=== PATIENT | female | born 1965 | race Caucasian/White ===

== ENCOUNTER 2017-01-20 16:35 | Inpatient (IN) ==
[2017-01-20 18:28] LABS: MANUAL DIFF NEEDED? NO
[2017-01-20 18:31] LABS: BASO% 0.5 % (0.0-0.8); EOS# 0.11 X1000 (0.0-0.7); EOS% 1.7 % (0.0-10.0); HEMATOCRIT 41.3 % (37.0-47.0); HEMOGLOBIN 13.8 g/dL (12.0-16.0); IMM GRAN# 0.01 X1000 (0.0-0.04); IMM GRAN% 0.2 % (0.0-0.5); LYMPH# 1.61 X1000 (1.2-3.4); LYMPH% 24.2 % (20.5-51.1); MCH 31.2 PG (27-31); MCHC 33.4 g/dL (33-37); MCV 93.4 FL (81-99); MONO# 0.67 X1000 (0.11-0.59); MONO% 10.1 % (1.7-9.3); MPV 9.8 FL (7.4-10.4); NEUT% 63.3 % (42.2-75.2); PLT 191 X1000 (130-400); RBC 4.42 XMIL (4.2-5.4)
[2017-01-20 18:50] LABS: CALCIUM 9.3 mg/dL (8.8-10.2); POTASSIUM 2.7 mmol/L (3.5-5.1); TOTAL BILIRUBIN 0.3 mg/dL (0.20-1.00); TOTAL PROTEIN 7.9 g/dL (6.3-8.3)
[2017-01-20] MEDS: POTASSIUM CHLORIDE 20 MEQ/SWI 20 MEQ/100 ML IVPB IV ONE ×2 (19:13→23:00)
[2017-01-20] MEDS ORDERED: KLOR-CON PO ONE (19:14)
[2017-01-20] MEDS ORDERED: TOPROL XL PO ONE (19:55)
[2017-01-20] MEDS ORDERED: NS 1,000 ML IV ONE (23:06)
[2017-01-20] MEDS ORDERED: DILAUDID IV ONE (23:07)
[2017-01-21 07:44] LABS: HEMATOCRIT 34.9 % (37.0-47.0); HEMOGLOBIN 11.5 g/dL (12.0-16.0); MCH 30.8 PG (27-31); MCV 93.6 FL (81-99); MPV 9.6 FL (7.4-10.4); RBC 3.73 XMIL (4.2-5.4)
[2017-01-21 07:59] LABS: ALBUMIN 4.3 g/dL (3.5-5.0); CALCIUM 8.9 mg/dL (8.8-10.2); MAGNESIUM 2.4 mg/dL (1.5-2.7); POTASSIUM 3.3 mmol/L (3.5-5.1); TOTAL BILIRUBIN 0.3 mg/dL (0.20-1.00); TOTAL PROTEIN 6.6 g/dL (6.3-8.3)
[2017-01-21] MEDS ORDERED: FUROSEMIDE 80 MG PO SCH (12:20)
[2017-01-21] MEDS ORDERED: POTASSIUM CHLORIDE 10% LIQUID PO SCH (13:00)
[2017-01-21] MEDS: LASIX PO SCH ×3 (13:22→20:57)
[2017-01-21] MEDS: WELLBUTRIN SR PO SCH ×2 (13:22→20:57)
[2017-01-21] MEDS: ATIVAN IV PRN (13:23)
[2017-01-21] MEDS: DURAGESIC 25 MICROGM/HR PATCH TD SCH (13:23)
[2017-01-21] MEDS: POTASSIUM CHLORIDE 10% LIQUID PO SCH ×2 (17:35→20:56)
[2017-01-21] MEDS: ADVAIR 250/50 DISKUS INH SCH (19:54)
[2017-01-21] MEDS: ELAVIL PO SCH (20:56)
[2017-01-21] MEDS: VIIBRYD PO SCH (20:56)
[2017-01-21] MEDS: BACTROBAN OINTMENT TOP SCH (20:56)
[2017-01-21] MEDS: ATIVAN PO SCH (20:57)
[2017-01-21] MEDS: BUMEX PO SCH (20:57)
[2017-01-21] MEDS: CELEBREX PO SCH (20:57)
[2017-01-21] MEDS: TOPAMAX PO SCH (20:57)
[2017-01-21] MEDS ORDERED: VIIBRYD PO SCH (21:00)
[2017-01-21] MEDS ORDERED: ELAVIL PO SCH (21:00)
[2017-01-21] MEDS: BENADRYL IV PRN (23:05)
[2017-01-21] MEDS: HALDOL IV PRN (23:05)
[2017-01-22] MEDS ORDERED: ATIVAN IV ONE ×3 (02:00→11:22)
[2017-01-22] MEDS: WELLBUTRIN SR PO SCH ×3 (04:11→21:00)
[2017-01-22 05:21] LABS: HEMATOCRIT 35.9 % (37.0-47.0); HEMOGLOBIN 11.8 g/dL (12.0-16.0); MCH 30.7 PG (27-31); MCHC 32.9 g/dL (33-37); MCV 93.5 FL (81-99); MPV 9.5 FL (7.4-10.4); RBC 3.84 XMIL (4.2-5.4)
[2017-01-22 05:46] LABS: ALBUMIN 4.6 g/dL (3.5-5.0); CALCIUM 8.6 mg/dL (8.8-10.2); POTASSIUM 2.8 mmol/L (3.5-5.1); TOTAL BILIRUBIN 0.3 mg/dL (0.20-1.00); TOTAL PROTEIN 6.9 g/dL (6.3-8.3)
[2017-01-22] MEDS ORDERED: POTASSIUM CHLORIDE 20 MEQ/SWI 20 MEQ/100 ML IVPB IV SCH (07:30)
[2017-01-22] MEDS: ADVAIR 250/50 DISKUS INH SCH ×2 (08:00→19:30)
[2017-01-22] MEDS: ATIVAN PO SCH ×2 (08:19→21:00)
[2017-01-22] MEDS: ATIVAN IV PRN (08:30)
[2017-01-22] MEDS ORDERED: POTASSIUM CHLORIDE 40 MEQ/SWI 40 MEQ/100 ML IVPB IV ONE (08:30)
[2017-01-22] MEDS: BUMEX PO SCH ×2 (14:54→21:00)
[2017-01-22] MEDS: BACTROBAN OINTMENT TOP SCH ×2 (14:54→21:01)
[2017-01-22] MEDS: TOPAMAX PO SCH ×2 (14:55→21:00)
[2017-01-22] MEDS: POTASSIUM CHLORIDE 10% LIQUID PO SCH ×3 (14:55→21:00)
[2017-01-22] MEDS: NEURONTIN PO SCH ×2 (14:56→14:58)
[2017-01-22] MEDS: CELEBREX PO SCH ×2 (14:57→21:00)
[2017-01-22] MEDS: LASIX PO SCH ×3 (14:58→21:01)
[2017-01-22] MEDS: DEMADEX PO SCH (14:58)
[2017-01-22] MEDS ORDERED: LEXISCAN ONE (19:14)
[2017-01-22] MEDS: HALDOL IV PRN (20:59)
[2017-01-22] MEDS: BENADRYL IV PRN (20:59)
[2017-01-22] MEDS: ELAVIL PO SCH (21:00)
[2017-01-22] MEDS: VIIBRYD PO SCH (21:00)
[2017-01-23] MEDS: WELLBUTRIN SR PO SCH ×3 (05:41→21:16)
[2017-01-23 06:07] LABS: HEMATOCRIT 35.2 % (37.0-47.0); HEMOGLOBIN 11.5 g/dL (12.0-16.0); MCH 30.3 PG (27-31); MCHC 32.7 g/dL (33-37); MCV 92.9 FL (81-99); MPV 9.6 FL (7.4-10.4); RBC 3.79 XMIL (4.2-5.4)
[2017-01-23 06:33] LABS: ALBUMIN 4.5 g/dL (3.5-5.0); CALCIUM 9.1 mg/dL (8.8-10.2); MAGNESIUM 1.9 mg/dL (1.5-2.7); TOTAL BILIRUBIN 0.3 mg/dL (0.20-1.00); TOTAL PROTEIN 7.2 g/dL (6.3-8.3)
[2017-01-23 06:39] LABS: POTASSIUM 2.6 mmol/L (3.5-5.1)
[2017-01-23] MEDS ORDERED: POTASSIUM CHLORIDE 40 MEQ/SWI 40 MEQ/100 ML IVPB IV ONE (07:24)
[2017-01-23] MEDS: ATIVAN PO SCH ×2 (07:42→21:10)
[2017-01-23] MEDS: ADVAIR 250/50 DISKUS INH SCH ×2 (08:00→20:20)
[2017-01-23] MEDS: CELEBREX PO SCH (09:06)
[2017-01-23] MEDS: DEMADEX PO SCH (09:06)
[2017-01-23] MEDS: NEURONTIN PO SCH ×2 (09:06→09:09)
[2017-01-23] MEDS: BUMEX PO SCH (09:07)
[2017-01-23] MEDS: TOPAMAX PO SCH ×2 (09:07→21:09)
[2017-01-23] MEDS: POTASSIUM CHLORIDE 20% LIQUID PO SCH ×4 (09:07→21:09)
[2017-01-23] MEDS: LASIX PO SCH ×4 (09:07→21:09)
[2017-01-23] MEDS: BACTROBAN OINTMENT TOP SCH ×2 (09:13→21:10)
[2017-01-23] MEDS: BENADRYL IV PRN (21:09)
[2017-01-23] MEDS: HALDOL IV PRN (21:09)
[2017-01-23] MEDS: VIIBRYD PO SCH (21:09)
[2017-01-24] MEDS: WELLBUTRIN SR PO SCH ×4 (05:06→21:46)
[2017-01-24] MEDS: ATIVAN IV PRN ×2 (05:22→18:08)
[2017-01-24 05:39] LABS: HEMATOCRIT 35.5 % (37.0-47.0); HEMOGLOBIN 11.6 g/dL (12.0-16.0); MCH 30.5 PG (27-31); MCHC 32.7 g/dL (33-37); MCV 93.4 FL (81-99); MPV 9.4 FL (7.4-10.4); RBC 3.8 XMIL (4.2-5.4)
[2017-01-24 06:38] LABS: ALBUMIN 4.4 g/dL (3.5-5.0); CALCIUM 8.6 mg/dL (8.8-10.2); TOTAL BILIRUBIN 0.2 mg/dL (0.20-1.00); TOTAL PROTEIN 7.2 g/dL (6.3-8.3)
[2017-01-24] MEDS: ADVAIR 250/50 DISKUS INH SCH ×2 (07:27→20:12)
[2017-01-24] MEDS: NEURONTIN PO SCH ×2 (08:59)
[2017-01-24] MEDS: TOPAMAX PO SCH ×2 (08:59→21:46)
[2017-01-24] MEDS: POTASSIUM CHLORIDE 20% LIQUID PO SCH ×4 (08:59→21:46)
[2017-01-24] MEDS: ATIVAN PO SCH ×2 (08:59→21:46)
[2017-01-24] MEDS: BACTROBAN OINTMENT TOP SCH ×2 (08:59→21:47)
[2017-01-24] MEDS: LASIX PO SCH ×4 (08:59→21:46)
[2017-01-24] MEDS: FLEXERIL PO PRN ×2 (11:53→21:51)
[2017-01-24] MEDS: DURAGESIC 25 MICROGM/HR PATCH TD SCH (15:18)
[2017-01-24] MEDS: BUMEX PO SCH (21:47)
[2017-01-24] MEDS: VIIBRYD PO SCH (21:47)
[2017-01-25] MEDS: WELLBUTRIN SR PO SCH ×3 (04:28→21:10)
[2017-01-25] MEDS: ATIVAN IV PRN ×2 (05:05→14:54)
[2017-01-25] MEDS: NEURONTIN PO SCH ×2 (08:13→08:14)
[2017-01-25] MEDS: BUMEX PO SCH ×2 (08:13→21:11)
[2017-01-25] MEDS: BACTROBAN OINTMENT TOP SCH ×2 (08:13→21:10)
[2017-01-25] MEDS: POTASSIUM CHLORIDE 20% LIQUID PO SCH ×4 (08:13→21:10)
[2017-01-25] MEDS: LASIX PO SCH ×4 (08:13→21:10)
[2017-01-25] MEDS: ATIVAN PO SCH ×2 (08:13→21:10)
[2017-01-25] MEDS: TOPAMAX PO SCH ×2 (08:13→21:11)
[2017-01-25] MEDS: ADVAIR 250/50 DISKUS INH SCH ×2 (09:32→19:32)
[2017-01-25] MEDS: HALDOL IV PRN (18:46)
[2017-01-25] MEDS: VIIBRYD PO SCH (21:10)
[2017-01-25] MEDS: FLEXERIL PO PRN (21:10)
[2017-01-26] MEDS: ATIVAN IV PRN ×2 (00:04→04:28)
[2017-01-26] MEDS: WELLBUTRIN SR PO SCH ×3 (04:29→20:44)
[2017-01-26] MEDS: ADVAIR 250/50 DISKUS INH SCH ×2 (08:46→19:25)
[2017-01-26] MEDS: TOPAMAX PO SCH ×2 (10:56→20:44)
[2017-01-26] MEDS: NEURONTIN PO SCH ×2 (10:56)
[2017-01-26] MEDS: ATIVAN PO SCH ×2 (10:57→20:43)
[2017-01-26] MEDS: LASIX PO SCH ×4 (10:57→20:43)
[2017-01-26] MEDS: BACTROBAN OINTMENT TOP SCH ×2 (10:57→20:44)
[2017-01-26] MEDS: CELEBREX PO SCH ×2 (10:57→20:43)
[2017-01-26] MEDS: BUMEX PO SCH ×2 (10:57→20:43)
[2017-01-26] MEDS: POTASSIUM CHLORIDE 20% LIQUID PO SCH ×4 (10:58→20:44)
[2017-01-26] MEDS: FLEXERIL PO PRN (11:01)
[2017-01-26] MEDS: VIIBRYD PO SCH (20:43)
[2017-01-27] MEDS: FLEXERIL PO PRN ×2 (00:57→20:59)
[2017-01-27] MEDS: ATIVAN IV PRN (00:57)
[2017-01-27] MEDS: WELLBUTRIN SR PO SCH ×3 (04:44→20:39)
[2017-01-27] MEDS: NEURONTIN PO SCH ×2 (08:16→08:17)
[2017-01-27] MEDS: POTASSIUM CHLORIDE 20% LIQUID PO SCH ×4 (08:16→20:43)
[2017-01-27] MEDS: LASIX PO SCH ×4 (08:17→20:39)
[2017-01-27] MEDS: BACTROBAN OINTMENT TOP SCH ×2 (08:17→20:42)
[2017-01-27] MEDS: CELEBREX PO SCH ×2 (08:17→20:39)
[2017-01-27] MEDS: TOPAMAX PO SCH ×2 (08:17→20:39)
[2017-01-27] MEDS: BUMEX PO SCH ×2 (08:17→20:39)
[2017-01-27] MEDS: ATIVAN PO SCH ×2 (08:17→20:39)
[2017-01-27] MEDS: DURAGESIC 25 MICROGM/HR PATCH TD SCH (12:19)
[2017-01-27] MEDS: ADVAIR 250/50 DISKUS INH SCH (19:25)
[2017-01-27] MEDS: ELAVIL PO SCH (20:39)
[2017-01-27] MEDS: VIIBRYD PO SCH (20:39)
[2017-01-27] MEDS: BENADRYL IV PRN (23:09)
[2017-01-28] MEDS: WELLBUTRIN SR PO SCH ×3 (04:12→20:58)
[2017-01-28] MEDS: ATIVAN IV PRN ×2 (05:39→12:44)
[2017-01-28] MEDS: FLEXERIL PO PRN ×2 (05:39→17:49)
[2017-01-28 05:43] LABS: MANUAL DIFF NEEDED? NO
[2017-01-28 06:13] LABS: AGAP 11; ALBUMIN 3.8 g/dL (3.5-5.0); ALKALINE PHOSPHATASE 110 U/L (32-104); BASO% 0.2 % (0.0-0.8); BUN 20 mg/dL (8-22); CALCIUM 8.7 mg/dL (8.8-10.2); CHLORIDE 103 mmol/L (98-107); COSMO 282; EOS# 0.23 X1000 (0.0-0.7); EOS% 4.2 % (0.0-10.0); GOT 17 U/L (10-30); GPT 46 U/L (10-36); HEMATOCRIT 31.2 % (37.0-47.0); HEMOGLOBIN 10.1 g/dL (12.0-16.0); IMM GRAN# 0.01 X1000 (0.0-0.04); IMM GRAN% 0.2 % (0.0-0.5); LYMPH# 1.58 X1000 (1.2-3.4); LYMPH% 28.9 % (20.5-51.1); MCH 30.6 PG (27-31); MCHC 32.4 g/dL (33-37); MCV 94.5 FL (81-99); MONO# 0.53 X1000 (0.11-0.59); MONO% 9.7 % (1.7-9.3); MPV 9.9 FL (7.4-10.4); NEUT% 56.8 % (42.2-75.2); PLT 183 X1000 (130-400); POTASSIUM 3.3 mmol/L (3.5-5.1); SODIUM 140 mmol/L (136-145); TCO2 26 mmol/L (25-35); TOTAL BILIRUBIN < 0.15 mg/dL (0.20-1.00); TOTAL PROTEIN 6.5 g/dL (6.3-8.3)
[2017-01-28] MEDS: ADVAIR 250/50 DISKUS INH SCH ×2 (07:11→19:55)
[2017-01-28] MEDS ORDERED: KLOR-CON PO ONE (07:57)
[2017-01-28] MEDS: BUMEX PO SCH ×2 (08:04→20:58)
[2017-01-28] MEDS: POTASSIUM CHLORIDE 20% LIQUID PO SCH ×4 (08:04→21:04)
[2017-01-28] MEDS: CELEBREX PO SCH ×2 (08:04→20:58)
[2017-01-28] MEDS: ATIVAN PO SCH ×2 (08:04→20:58)
[2017-01-28] MEDS: TOPAMAX PO SCH ×2 (08:04→20:58)
[2017-01-28] MEDS: NEURONTIN PO SCH ×2 (08:04→08:05)
[2017-01-28] MEDS: LASIX PO SCH ×4 (08:04→20:58)
[2017-01-28] MEDS: BACTROBAN OINTMENT TOP SCH ×2 (08:05→20:56)
[2017-01-28] MEDS: VIIBRYD PO SCH (20:57)
[2017-01-28] MEDS: BENADRYL IV PRN (20:57)
[2017-01-28] MEDS: ELAVIL PO SCH (20:58)
[2017-01-29] MEDS: WELLBUTRIN SR PO SCH ×2 (03:55→11:58)
[2017-01-29] MEDS: ATIVAN IV PRN (03:57)
[2017-01-29 07:06] LABS: POTASSIUM 3.5 mmol/L (3.5-5.1)
[2017-01-29] MEDS: ADVAIR 250/50 DISKUS INH SCH ×2 (07:16→07:18)
[2017-01-29] MEDS: POTASSIUM CHLORIDE 20% LIQUID PO SCH ×3 (09:09→17:01)
[2017-01-29] MEDS: ATIVAN PO SCH (09:10)
[2017-01-29] MEDS: NEURONTIN PO SCH ×2 (09:10)
[2017-01-29] MEDS: LASIX PO SCH ×3 (09:10→17:01)
[2017-01-29] MEDS: TOPAMAX PO SCH (09:10)
[2017-01-29] MEDS: BUMEX PO SCH (09:10)
[2017-01-29] MEDS: BACTROBAN OINTMENT TOP SCH (09:11)
[2017-01-29] MEDS: FLEXERIL PO PRN (09:11)
[2017-01-29] MEDS: CELEBREX PO SCH (09:11)
[2017-01-29 15:52] VITALS: BP 123/96
== END 2017-01-29 18:50 | disposition home or self-care (01) ==
LOC: P.ED 16:35 → SUATTDRO 16:36 → P.MEDSURG 16:36
PROVIDERS: ATTEND Internal Medicine